=== PATIENT | female | born 1975 | race Caucasian/White ===

== ENCOUNTER 2023-02-12 14:39 | Outpatient (CLI) | payer OTHER ==
[2023-02-13 16:25] LABS: Reference Lab Name LABCORP
== END 2023-02-12 14:40 | disposition home or self-care (01) ==
LOC: NAV LAB 14:39
PROVIDERS: ATTEND Nurse Practitioner Family
DX: E78.6 Lipoprotein deficiency (principal); E78.49 Other hyperlipidemia; N95.1 Menopausal and female climacteric states; F32.89 Other specified depressive episodes; F41.8 Other specified anxiety disorders; R53.83 Other fatigue; Z79.890 Hormone replacement therapy